=== PATIENT | male | born 1980 | race Caucasian/White ===

== ENCOUNTER → 2017-01-31 | Outpatient (CLI) | payer BC | LOC: KOH-I 10:48 | DX: R05 Cough (principal); R06.2 Wheezing | CPT/HCPCS: 71020 ==

== ENCOUNTER → 2021-08-13 | Outpatient (CLI) | payer BC | LOC: KOH-I 10:03 | DX: M25.511 Pain in right shoulder (principal) | CPT/HCPCS: 73030 ==

== ENCOUNTER → 2021-11-23 | Outpatient (CLI) | payer BC | LOC: KOH-I 10:59 | DX: M54.50 Low back pain, unspecified (principal); G89.29 Other chronic pain | CPT/HCPCS: 72100 ==